=== PATIENT | male | born 2000 | race Caucasian/White ===

== ENCOUNTER 2022-12-25 15:30 | Outpatient (RCR) | payer OTHER, SELFPAY ==
--- NOTE | 2022-11-28 15:19 | PTOPEVAL1 ---
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; no injury to shoulder; is currently working with [employer] applications trainer for shoulder--- is stretching IR and ER shoulder, strengthening with bands/weights- weighted ball: taps on wall, trampline toss; general strength training-- overhead press, sh abduction; is currently taking a one year break from baseball , to get his shoulder better, is practicing, but not playing any games; had xray of shoulder, negative per pt; Reported Pain Level Pain Score Self Report Additional Pain Score Comments pain range in the past week: 4-7/10; R shoulder top & post of GH joint-- internal pain , stiff and tight in shoulder; static feel, pain comes in waves; some tightness feeling in medial humerus; increase pain with pitching activity, upward motions of arm; decrease pain with over the counter meds, stretching, ice used sometimes, have stim unit; Assessment PT Clinical Summary Mari has the diagnosis of R shoulder pain/ impingement. He is a vending machine servicer and active- -doing resisted exercises and stretching with [employer] applications trainer and on his own. Gradual increase in shoulder pain over the past year, as he started doing more strengthening and pitching. Reports more tightness and stiffness than ouch pain. With the evaluation, he has rounded shoulder posture, with increased bulk of pecs; with active motions, he has poor scapular-humeral rhythm and tightness of GH joint. Skilled PT services are indicated for modalities to decrease tightness and pain of shoulder, therapeutic exercises to increase flexibility of shoulder ER motion and strengthen scapular- thoracic areas, to improve position of GH joint and mechanics of shoulder motion, with education for home exercises and postion of shoulder. Plan of Care Interventions Hot Pack/Cold Pack,Manual Therapy,Neuro Re- education,Patient/Caregiver Education,Therapeutic Activities,Therapeutic Exercise,Ultrasound,Other Other Interventions taping PT Services Indicated
--- NOTE | 2022-11-30 12:27 | PCPTNOTE ---
Patient called to reschedule today's appointment from 11:15am to a later appointment this date.
--- NOTE | 2022-12-04 10:00 | PCPTNOTE ---
Patient did not show up for scheduled appointment this date. Therapist tried calling both phone numbers that we have on file. For mom's number the lady said that it was a wrong number and for dad's number there was a busy signal. Therapist was unable to confirm patient's next scheduled appointment for 12/06/22 at 0945.
--- NOTE | 2022-12-06 10:03 | PCPTNOTE ---
Pt no showed for visit this morning. Left message and appt reminder for next visit next week.
--- NOTE | 2022-12-14 14:41 | PCPTNOTE ---
Pt no showed his visit today.
--- NOTE | 2022-12-28 09:08 | PCPTNOTE ---
Pt no showed appt today, called and left message for appt. next week.
--- NOTE | 2023-01-02 08:00 | PCPTNOTE ---
pt called and canceled today's reeval due to being ill.
--- NOTE | 2023-01-09 12:35 | PCPTNOTE ---
pt did not show for today's reeval appt; called pt and he had the wrong date and time for his appt--thought it was Thurs at 8:45; stated he would like to continue therapy. Discussed with pt that he will have to call and make an appt for the reeval, to determine if therapy is to continue or not.
--- NOTE | 2023-01-25 16:08 | PTOPDC ---
Assessment and note entered by Ananya Denise, PT Evaluation Information Assessment Status Discharge - Pt Not Present Diagnosis R shoulder pain/impingement Assessment PT Clinical Summary Mari has received 6 PT sessions. He called/ canceled one and did not show for 4 appointments. He will be discharged at this time; the goals were not assessed. Plan of Care PT Services Indicated No
== END 2023-01-26 08:37 | disposition home or self-care (01) ==
LOC: ANHPT 15:30
PROVIDERS: PCP Pediatrics; Visit Provider Family Medicine Sports Medicine
DX: M25.511 Pain in right shoulder (principal); M75.41 Impingement syndrome of right shoulder
CPT/HCPCS: 97110; 97112; 97140; 97161; 97530; 99199

== ENCOUNTER 2023-09-14 08:45 | Outpatient (RCR) | payer OTHER, SELFPAY ==
[2023-07-23 14:25] VITALS: BP_SYST 75
--- NOTE | 2023-07-23 15:30 | OPREHPOC ---
Outpatient Therapy Plan of Care This is a Multidisciplinary Plan of Care that may contain components documented by all disciplines (PT, OT, and ST.) PT Problem 1 PT Problem #1 Knowledge Deficit PT Goal 1 Goal Pt to be IND with issued HEP Target Visit 16 PT Problem 2 PT Problem #2 Pain PT Goal 1 Goal Pt to report shoulder pain no greater than 3/10 in the last week Target Visit 16 PT Goal 2 Goal Pt to report 75% improvement in overall symptoms. Target Visit 16 PT Problem 3 PT Problem #3 Impaired Range of Motion PT Goal 1 Goal Pt to increase active shoulder flexion to 160 deg when protocol allows Target Visit 16 PT Goal 2 Goal Pt to increase active shoulder abduction to 140 deg when protocol allows. Target Visit 16 PT Problem 4 PT Problem #4 Impaired Strength PT Goal 1 Goal Pt to improve R shoulder strength to 5/5 when protocol allows Target Visit 16 PT Goal 2 Goal Pt to be demonstrate a 10lb overhead press when protocol allows Target Visit 16
--- NOTE | 2023-07-23 15:31 | PTOPEVAL1 ---
Assessment and note entered by Tan Connolly, PT, DPT Evaluation Information Assessment Status Evaluation Diagnosis R shoulder slap tear repair Onset 07/16/23 Subjective Information Pt states he had a slap repair last week. He states overall he is doing pretty well, he states his pain is very limited but easily controlled with pain medication. Reported Pain Level Pain Score 0: Self Report Assessment PT Clinical Summary Mari presents to therapy today 7 days p/o a R slap tear repair. Pt is a collegiate s iron worker. Today he demonstrates decreased active and passive ROM and strength d/t limitations of his therapeutic protocol. Skilled therapy services are indicated to improve ROM, strength, and functional mobility and therapeutic protocol allows . Plan of Care Interventions Electrical Stimulation,Hot Pack/Cold Pack,Manual Therapy,Neuro Re-education,Patient/Caregiver Educati,Therapeutic Activities,Self-Care/Home Management PT Services Indicated Yes Treatment Frequency and 2x/wk for 16 visits Duration These treatments will address the objective and functional deficits as defined above. The patient will be advanced safely and appropriately in order for the patient to progress towards his/her prior level of function. Additional exercises will be introduced and as well as a comprehensive home exercise program upon discharge, if needed, ?to ensure carryover of functional gains achieved in the clinic. This treatment plan has been reviewed and agreement upon by the patient.
--- NOTE | 2023-08-13 13:26 | PCPTNOTE ---
Patient called & cancelled scheduled appointment this date due to having a conflict. He has been rescheduled.
--- NOTE | 2023-08-15 13:18 | PCPTNOTE ---
Patient no show appointment. Called, azalia reports feeling ill. Rescheduled for tomorrow am.
--- NOTE | 2023-08-20 15:14 | PCPTNOTE ---
Patient did not show up for scheduled appointment this date. Called and LVM with follow up instructions.
[2023-08-22 11:03] VITALS: BP_SYST 120
--- NOTE | 2023-08-22 11:58 | PTOPPROG ---
Assessment and note entered by Tan Connolly, PT, DPT Evaluation Information Assessment Status Progress Diagnosis R shoulder slap tear repair Onset 07/16/23 Subjective Information Pt states so far his shoulder is progressing well. He was weaned out of the sling and has been trying to incorporate an arm swing when walking. He states if he go long without without his sling his biceps will start to hurt, he will put his sling back on when this starts to hurt. He declines any concerns with pain. He states his ROM is progressing well but still lack the internal and external rotation that he needs. Assessment PT Clinical Summary Mari presents to therapy today following 9 visits of skilled therapy to treat the deficits related to a R slap tear repair. Today he demonstrates decreased active and passive ROM and strength d/t limitations of his therapeutic protocol. His active and passive strength is progressing as tolerated. He will start working towards his strength goals next week. Continuation of skilled therapy services are indicated to improve ROM, strength, and functional mobility and therapeutic protocol allows. Plan of Care Interventions Electrical Stimulation,Hot Pack/Cold Pack,Manual Therapy,Neuro Re-education,Patient/Caregiver Educati,Therapeutic Activities,Self-Care/Home Management PT Services Indicated Yes Treatment Frequency and 2x/wk for 16 visits Duration These treatments will address the objective and functional deficits as defined above. The patient will be advanced safely and appropriately in order for the patient to progress towards his/her prior level of function. Additional exercises will be introduced and as well as a comprehensive home exercise program upon discharge, if needed, ?to ensure carryover of functional gains achieved in the clinic. This treatment plan has been reviewed and agreement upon by the patient.
--- NOTE | 2023-08-29 09:35 | PCPTNOTE ---
Patient's appointment was canceled this date due to not having signature sheet signed off on.
--- NOTE | 2023-08-31 12:39 | PCPTNOTE ---
Patient called to cancel stating he would not be able to make it.
--- NOTE | 2023-09-06 08:01 | PCPTNOTE ---
Patient called to cancel stating he cannot make due to family concern.
--- NOTE | 2023-09-11 14:26 | PCPTNOTE ---
Patient canceled for 09/12/23 due to having to work.
--- NOTE | 2023-09-18 10:17 | PCPTNOTE ---
Patient called & cancelled scheduled appointment this date due to having to work. He states he will call back to reschedule.
--- NOTE | 2023-10-16 13:12 | PCPTNOTE ---
Patient did not show up for scheduled appointment this date. Called and spoke with doctors office again regarding attendance concerns. Office said to not reschedule pt at this time, they will contact him. He will be discharged from therapy services here at this time.
--- NOTE | 2023-10-16 13:31 | PTOPDC ---
Assessment and note entered by Tan Connolly, PT, DPT Evaluation Information Assessment Status Discharge - Pt Not Present Diagnosis R shoulder slap tear repair Onset 07/16/23 Subjective Information Patient did not show up for scheduled appointment this date, this appointment was booked yesterday to fit the pts schedule. Called and spoke with doctors office again regarding attendance concerns . Office said to not reschedule pt at this time, they will contact him. He will be discharged from therapy services here at this time. Assessment PT Clinical Summary Pt was evaluated on 07/23/23 and attended 11 appointments since, cancelling 5 and no showing 2 appointments. Pt will be discharged at this time per the attendance policy.
== END 2023-10-17 08:00 | disposition home or self-care (01) ==
LOC: ANHGOSHPT 08:45
PROVIDERS: PCP Pediatrics; Visit Provider Orthopaedic Surgery
DX: Z48.89 Encounter for other specified surgical aftercare (principal); Z98.890 Other specified postprocedural states
CPT/HCPCS: 97014; 97110; 97140; 97161; 97530; 99199; G0283